=== PATIENT | female | born 1995 | race Caucasian/White ===

== ENCOUNTER 2016-06-03 21:22 | Emergency (ER) | payer OTHER ==
[2016-06-03 21:40] VITALS: BP 133/71
--- NOTE | 2016-06-03 22:41 | EDM.PDOC ---
ED HPI GENERAL MEDICAL PROBLEM - General Chief Complaint: General Stated Complaint: 7 WKS HAS A COLD Time Seen by Provider: 06/03/16 21:46 Source of Information: Reports: Patient History Limitations: Reports: No limitations - History of Present Illness Onset: gradual Duration: Getting worse Quality: Reports: Other (painful cough) Improves with: Reports: None Worsens with: Reports: None Context: Reports: Sick contact Associated Symptoms: Reports: cough throat Pain Score (Numeric/FACES): 5 - Related Data Allergies Allergy/AdvReac Type Severity Reaction Status Date / Time Penicillins Allergy Severe Hives Verified 06/03/16 21:40 Home Meds: Home Meds [id number]/Iron Fumarate/FA/DSS [ 19 Tablet] 1 tab PO DAILY 03/15/16 [ History] Past Medical History - Past Health History Medical/Surgical History: Denies Medical/Surgical History [employer] History: Reports: , Spontaneous - Infectious Disease History Infectious Disease History: Reports: Chicken pox Social & Family History - Family History Family Medical History: Noncontributory OBGYN: Reports: Other (see below) Other OBGYN Family History: mother 2 miscarriages early in - Tobacco Use Smoking Status *Q: Never Smoker Second Hand Smoke Exposure: Yes - Caffeine Use Caffeine Use: Reports: None - Alcohol Use Days Per Week of Alcohol Use: 0 - Recreational Drug Use Recreational Drug Use: No - Living Situation & Occupation Living situation: Reports: with significant other Occupation: student ED ROS GENERAL - Review of Systems Review Of Systems: See Below Constitutional: Reports: no symptoms HEENT: Reports: No symptoms Respiratory: Reports: Pleuritic Chest Pain, Cough (green phlem) Cardiovascular: Reports: No symptoms Endocrine: Reports: no symptoms GI/Abdominal: Reports: No symptoms : Reports: no symptoms Musculoskeletal: Reports: no symptoms Skin: Reports: no symptoms Neurological: Reports: No Symptoms Psychiatric: Reports: No symptoms Hematologic/Lymphatic: Reports: no symptoms Immunologic: Reports: no symptoms ED EXAM, GENERAL - Physical Exam Exam: See Below Exam Limited By: No limitations General Appearance: alert, WD/WN, no apparent distress Eye Exam: bilateral eye: normal inspection Ears: normal external exam, normal canal, hearing grossly normal, normal TMs Ear Exam: bilateral ear: auricle normal, canal normal, TM normal Nose: normal inspection, normal mucosa, no blood Throat/Mouth: Normal inspection, Normal lips, Normal teeth, Normal gums, Normal oropharynx, Normal voice, No airway compromise Head: atraumatic, normocephalic Neck: normal inspection, supple, non-tender, full range of motion Respiratory/Chest: no respiratory distress, no accessory muscle use, rhonchi ( with cough) Cardiovascular: normal peripheral pulses, regular rate, rhythm, no edema, no gallop, no JVD, no murmur, no rub GI/Abdominal: normal bowel sounds, soft, non tender Extremities: normal inspection Neurological: alert, oriented, CN II-XII intact, normal cognition, normal gait, normal reflexes, no motor/sensory deficits Psychiatric: normal affect, normal mood Skin Exam: Warm, Dry, Intact, Normal color, No rash Lymphatic: no adenopathy Course - Vital Signs Last Recorded V/S: Last Vital Signs Temp 37.5 C 06/03/16 21:40 Pulse 107 H 06/03/16 21:40 Resp 16 06/03/16 21:40 BP 133/71 06/03/16 21:40 Pulse Ox 97 06/03/16 21:40 - Orders/Labs/Meds Orders: Active Orders 24 hr Category Date Time Status CULTURE STREP A CONFIRMATION [] Stat Lab 06/03/16 21:53 Results STREP SCRN A RAPID W CULT CONF [] Stat Lab 06/03/16 21:53 Results Labs: Laboratory Tests 06/03/16 Range/Units 22:10 Urine Color Yellow Urine Appearance Clear Urine pH 5.0 (4.5-8.0) Ur Specific [place] 1.015 (1.008-1.030) Urine Protein Negative (NEGATIVE) mg/dL Urine Glucose (UA) Normal (NEGATIVE) mg/dL Urine Ketones Negative (NEGATIVE) mg/dL Urine Occult Blood Negative (NEGATIVE) Urine Nitrite Negative (NEGATIVE) Urine Bilirubin Negative (NEGATIVE) Urine Urobilinogen Normal (NORMAL) mg/dL Ur Leukocyte Esterase Negative (NEGATIVE) Urine RBC Not seen (0-5) Urine WBC 0-5 (0-5) Ur Epithelial Cells Few Amorphous Sediment Not seen Urine Bacteria Moderate Urine Mucus Not seen Urine Other Departure - Departure Time of Disposition: 22:37 Disposition: Home, Self-Care 01 Condition: good Clinical Impression: Bronchitis Instructions: Acute Bronchitis, [id number] Referrals: Jeri Cruz PA [Primary Care Provider] - Forms: ED Department Discharge Care Plan Goals: bronchitis acute -Zithromax 2 tabs today then 1 tab daily x4 -Robitussin-AC 10 mL is every 4-6 hours when necessary painful cough -Rest, push fluids, take Tylenol or Motrin for pain or fever Return to clinic or emergency room if has increased pain, fever, chills, nausea , vomiting, rash, or not improved. - Problem List & Annotations (1) Bronchitis SNOMED Code(s): 81851088 Code(s): J40 - BRONCHITIS, NOT SPECIFIED ACUTE OR CHRONIC Status: Acute Priority: High (2) state, incidental SNOMED Code(s): 12241579 Code(s): Z33.1 - STATE, INCIDENTAL Status: Acute Priority: High - Problem List Review Problem List Initiated/Reviewed/Updated: Yes - My Orders Last 24 Hours: My Active Orders 06/03/16 21:53 CULTURE STREP A CONFIRMATION [RM] Stat STREP SCRN A RAPID W CULT CONF [RM] Stat - Assessment/Plan Last 24 Hours: My Active Orders 06/03/16 21:53 CULTURE STREP A CONFIRMATION [RM] Stat STREP SCRN A RAPID W CULT CONF [RM] Stat Plan: bronchitis acute -influenza A and B negative -Rapid strep negative throat culture pending -Zithromax 2 tabs today then 1 tab daily x4 -Robitussin-AC 10 mL is every 4-6 hours when necessary painful cough -Rest, push fluids, take Tylenol or Motrin for pain or fever Return to clinic or emergency room if has increased pain, fever, chills, nausea , vomiting, rash, or not improved. incidental state -7 weeks intrauterine by ultrasound -Denies any spotting bleeding or discharge Advised to rest, take medications as directed Return to clinic or ER if has any spotting, bleeding, leaking of fluids, cramping lasting more than 2 hours, or any concerns
== END 2016-06-03 22:49 | disposition home or self-care (01) ==
LOC: JP.ED 21:22
DX: O99.511 Diseases of the respiratory system complicating pregnancy, first trimester (principal); J40 Bronchitis, not specified as acute or chronic; Z88.0 Allergy status to penicillin; Z3A.01 Less than 8 weeks gestation of pregnancy
CPT/HCPCS: 81001; 87081; 87430; 87804; 99284